=== PATIENT | female | born 1940 | race Caucasian/White ===

== ENCOUNTER → 2017-05-15 06:00 | Outpatient (REF) | payer MEDICARE, SELFPAY ==
[2017-05-15 08:50] LABS: Hematocrit 41.5 % (37-47); Hemoglobin 12.8 g/dl (12.0-15.0); Mean Corp Hgb Conc 30.8 g/gl (32-36); Mean Corpuscular Hgb 29.8 pg (27.0-32.0); Mean Corpuscular Volume 96.5 fL (81-99); Mean Platelet Vol. 10.1 fl (6.2-12.0); Platelet Count 280 K/mm3 (150-450); RBC Distribution Width SD 49.4 fl (35.1-43.9); White Blood Count 4.9 K/mm3 (4.4-11.0)
[2017-05-15 08:51] LABS: Scan Indicated on CBC? Y/N NO
[2017-05-15 09:12] LABS: AST(SGOT) 14 U/L (15-37); Alanine Aminotransfer ALT/SGPT 17 U/L (12-78); Albumin, Serum 3.2 g/dL (3.4-5.0); Alkaline Phosphatase 81 U/L (45-117); Anion Gap 8 (5-15); BUN 19 mg/dL (7-18); BUN/Creat Ratio 19.1 RATIO (10-20); Calcium,Total 9.3 mg/dL (8.5-10.1); Chloride 104 mmol/L (98-107); Cholesterol 208 mg/dL (200); EST Glomerular Filtration Rate 58 mL/min (>60); Est Glom Filt Rate - Afr Amer 70 mL/min (>60); Globulin 3.3 g/dL (2.3-3.5); Glucose 78 mg/dL (70-110); High Density Lipoprotein 88 mg/dL; Potassium 3.9 mmol/L (3.5-5.1); Protein, Total 6.5 g/dL (6.4-8.2); Sodium Level 140 mmol/L (136-145); Thyroid Stim Hormone (TSH) 4.77 uIU/mL (0.358-3.74); Triglycerides 67 mg/dL; Very Low Density Lipoprotein 13 mg/dL (5-40)
[2017-05-16 08:41] LABS: Vitamin D,25 Hydroxy 28.3 ng/mL
== END | disposition home or self-care (01) ==
LOC: OLS.ACW100 06:00
PROVIDERS: Visit Provider Family Medicine
DX: J06.9 Acute upper respiratory infection, unspecified (principal); J44.9 Chronic obstructive pulmonary disease, unspecified; M62.81 Muscle weakness (generalized); I10 Essential (primary) hypertension; I69.928 Other speech and language deficits following unspecified cerebrovascular disease; E55.9 Vitamin D deficiency, unspecified; R35.0 Frequency of micturition
CPT/HCPCS: 36415; 80053; 80061; 82306; 84443; 85027

== ENCOUNTER → 2017-11-29 | Outpatient (REF) | payer MEDICARE, SELFPAY ==
[2017-11-29 06:46] LABS: Hematocrit 42.7 % (37-47); Hemoglobin 13.2 g/dl (12.0-15.0); Mean Corp Hgb Conc 30.9 g/gl (32-36); Mean Corpuscular Hgb 29.4 pg (27.0-32.0); Mean Corpuscular Volume 95.1 fL (81-99); Mean Platelet Vol. 10.4 fl (6.2-12.0); Platelet Count 304 K/mm3 (150-450); RBC Distribution Width CV 14.2 % (11.6-14.6); RBC Distribution Width SD 49.3 fl (35.1-43.9); Red Blood Count 4.49 M/mm3 (4.2-5.4); White Blood Count 6.9 K/mm3 (4.4-11.0)
[2017-11-29 06:54] LABS: Scan Indicated on CBC? Y/N NO
[2017-11-29 07:13] LABS: ALB/GLOB Ratio 0.9 RATIO (0.9-2.4); AST(SGOT) 16 U/L (15-37); Alanine Aminotransfer ALT/SGPT 19 U/L (12-78); Albumin, Serum 2.9 g/dL (3.4-5.0); Alkaline Phosphatase 108 U/L (45-117); Anion Gap 9 (5-15); BUN 11 mg/dL (7-18); BUN/Creat Ratio 17.2 RATIO (10-20); Calcium,Total 9.2 mg/dL (8.5-10.1); Chloride 105 mmol/L (98-107); Cholesterol 132 mg/dL (200); Creatinine, Serum 0.64 mg/dL (0.55-1.02); EST Glomerular Filtration Rate 96 mL/min (>60); Est Glom Filt Rate - Afr Amer 116 mL/min (>60); Globulin 3.2 g/dL (2.2-4.2); Glucose 85 mg/dL (70-110); High Density Lipoprotein 78 mg/dL; Protein, Total 6.1 g/dL (6.4-8.2); Sodium Level 140 mmol/L (136-145); Thyroid Stim Hormone (TSH) 2.25 uIU/mL (0.358-3.74); Triglycerides 76 mg/dL; Very Low Density Lipoprotein 15 mg/dL (5-40)
[2017-11-29 09:14] LABS: Hemoglobin A1c 5.3 % (4.2-6.3)
[2017-11-30 09:55] LABS: Vitamin D,25 Hydroxy 35.4 ng/mL
== END | disposition home or self-care (01) ==
LOC: OLS.ACW400 04:00
PROVIDERS: Visit Provider Family Medicine
DX: J44.9 Chronic obstructive pulmonary disease, unspecified (principal); I11.0 Hypertensive heart disease with heart failure; I50.9 Heart failure, unspecified; R41.841 Cognitive communication deficit; R48.9 Unspecified symbolic dysfunctions; F01.51 Vascular dementia, unspecified severity, with behavioral disturbance; E55.9 Vitamin D deficiency, unspecified; R35.0 Frequency of micturition; Z79.899 Other long term (current) drug therapy
CPT/HCPCS: 36415; 80053; 80061; 82306; 83036; 84443; 85027

== ENCOUNTER → 2017-12-14 10:00 | Outpatient (REF) | payer SELFPAY | LOC: OLS.ACW400 10:00 | PROVIDERS: Visit Provider Family Medicine | DX: J44.9 Chronic obstructive pulmonary disease, unspecified (principal); I11.0 Hypertensive heart disease with heart failure; I50.9 Heart failure, unspecified; R41.841 Cognitive communication deficit; R48.9 Unspecified symbolic dysfunctions; F01.51 Vascular dementia, unspecified severity, with behavioral disturbance | CPT/HCPCS: 87804 ==